=== PATIENT | male | born 1945 | race Caucasian/White ===

== ENCOUNTER 2022-08-10 08:29 | Outpatient (CLI) | payer MEDICARE, SELFPAY | END 2022-08-10 08:30 | disposition home or self-care (01) | LOC: OP CLINIC 08:30 | PROVIDERS: PCP Physician Assistant Medical; Visit Provider Surgery | DX: Z86.010 Personal history of colon polyps (principal); Z98.0 Intestinal bypass and anastomosis status | CPT/HCPCS: 45378; J2250; J3010 ==

== ENCOUNTER 2023-03-31 10:08 | Outpatient (CLI) | payer MEDICARE, SELFPAY | END 2023-03-31 10:09 | disposition home or self-care (01) | PROVIDERS: PCP Physician Assistant Medical; Visit Provider Physician Assistant Medical | DX: K21.9 Gastro-esophageal reflux disease without esophagitis (principal); Z12.5 Encounter for screening for malignant neoplasm of prostate; Z13.9 Encounter for screening, unspecified | CPT/HCPCS: 80053; 80061; 84153 ==

== ENCOUNTER 2023-09-17 08:38 | Outpatient (CLI) | payer MEDICARE, SELFPAY ==
--- NOTE | 2023-09-17 09:00 | CT_ITS ---
Patient: JORGE MALAVE Facility:?[facility] Patient ID:?[id number] Site Patient ID:?[id number]. Site :?[id number] Study:?CT-Abdomen/Pelvis w/o-09/17/2023 8:57:52 AM Ordering Physician:Leslie Final Report: Indication: Umbilical hernia repair post pain Technique: Noncontrast CT abdomen and pelvis Please note that all CT scans at this facility use dose modulation, iterative reconstruction, and/or weight-based dosing when appropriate to reduce radiation dose to as low as reasonably achievable. Comparison: 07/30/2021 Findings: Emphysematous changes are present within both lung bases along with fibrosis including bronchiectasis. No pleural effusion. Fatty liver. Calcified gallstone. No splenomegaly. Small hiatal hernia. Adrenal glands normal. Peripherally calcified cyst left kidney is unchanged. No hydronephrosis or renal stone. Pancreatic atrophy. Aneurysm of the abdominal aorta measuring 6.0 x 5.6 cm, previously measuring 5.6 cm. Sigmoid diverticulosis. No diverticulitis. Postop changes right hemicolectomy. No bowel obstruction. Similar appearance of the left inguinal canal. Postop changes of umbilical hernia repair. Rectus diastasis has developed with the distance between the rectus muscles measuring 6.1 cm. No recurrent hernia/fluid collection/abscess. No adenopathy. Compression deformity of L3. Degenerative changes. Impression: Postop changes to the anterior abdominal wall extending from the umbilicus cephalad. No fluid collection or abscess. Rectus diastasis is present. Enlargement of the abdominal aortic aneurysm now measuring 6.0 cm. Chronic sigmoid diverticulosis. Chronic wedging L3. Fibrotic changes with emphysema in the lung bases. Hepatic steatosis. Cholelithiasis. Please note that all CT scans at this facility use dose modulation, iterative reconstruction, and/or weight-based dosing when appropriate to reduce radiation dose to as low as reasonably achievable. Dictated by Tyshawn Roe MD @ 09/17/2023 10:48:27 AM Signed by:?Tyshawn Roe MD @09/17/2023 10:48:27 AM (Electronic Signature)
== END 2023-09-17 08:39 | disposition home or self-care (01) ==
LOC: CT 08:39
PROVIDERS: PCP Physician Assistant Medical; Visit Provider Physician Assistant Medical
DX: K42.9 Umbilical hernia without obstruction or gangrene (principal); I71.40 Abdominal aortic aneurysm, without rupture, unspecified; K57.30 Diverticulosis of large intestine without perforation or abscess without bleeding; K76.0 Fatty (change of) liver, not elsewhere classified; K80.20 Calculus of gallbladder without cholecystitis without obstruction
CPT/HCPCS: 74176

== ENCOUNTER 2024-10-05 10:45 | Outpatient (CLI) | payer MEDICARE, SELFPAY | END 2024-10-05 10:46 | disposition home or self-care (01) | LOC: NFLDREF 10-07 07:05 | PROVIDERS: PCP Physician Assistant Medical; Referring Provider Physician Assistant Medical; Visit Provider Physician Assistant Medical | DX: Z00.00 Encounter for general adult medical examination without abnormal findings (principal); R73.03 Prediabetes; K21.9 Gastro-esophageal reflux disease without esophagitis; N28.1 Cyst of kidney, acquired; Z13.6 Encounter for screening for cardiovascular disorders; Z13.29 Encounter for screening for other suspected endocrine disorder | CPT/HCPCS: 80053; 80061; 84443 ==

== ENCOUNTER 2024-10-10 09:33 | Outpatient (CLI) | payer MEDICARE, SELFPAY ==
--- NOTE | 2024-10-10 10:00 | CRLHL7_ITS ---
For Patients: As a result of the Century Cures Act, medical imaging exams and procedure reports are released immediately into your electronic medical record. You may view this report before your referring provider. If you have questions, please contact your health care provider. CLINICAL HISTORY: cyst of kidney COMPARISON: none TECHNIQUE: Polo scale and color Doppler images were acquired of the kidneys and urinary bladder. FINDINGS: Cyst with peripheral calcifications left kidney measures 3.5 x 3.4 x 3.2 cm. No hydronephrosis. Normal color Doppler imaging of both kidneys. The right kidney measures 11.5cm in length and the left kidney measures 11.8cm in length. The renal cortex appears of normal thickness. The urinary bladder appears normal. Bladder wall measures 3 millimeters. Prevoid bladder volume 134 cc. Postvoid bladder volume 8 cc. Color Doppler images reveal a normal appearance of both ureteral jets. There is no evidence of bladder calculi or diverticula. IMPRESSION: Benign Bosniak II left renal cyst requiring no follow up. Dictated by Tyshawn Roe MD @ 10/10/2024 10:43:11 AM (Electronically Signed)
== END 2024-10-10 09:34 | disposition home or self-care (01) ==
LOC: US 09:35
PROVIDERS: PCP Physician Assistant Medical; Visit Provider Physician Assistant Medical
DX: N28.1 Cyst of kidney, acquired (principal)
CPT/HCPCS: 76770

== ENCOUNTER 2025-03-12 13:47 | Outpatient (CLI) | payer MEDICARE, SELFPAY | END 2025-03-12 13:48 | disposition home or self-care (01) | LOC: NFLDREF 03-16 03:13 | PROVIDERS: PCP Physician Assistant Medical; Referring Provider Physician Assistant Medical; Visit Provider Physician Assistant Medical | DX: N30.00 Acute cystitis without hematuria (principal) | CPT/HCPCS: 87086 ==